=== PATIENT | male | born 1955 | race Asian ===

== ENCOUNTER 2019-04-08 22:06 | Emergency (ER) | payer OTHER ==
[~2019-04-08] VITALS: Ht 167.6 cm; Wt 75.6 kg
[~2019-04-08 22:06] MED LIST: ASPI81TA45 PO; ATOR40TA78 PO; CLOP75TA PO; LISI40TA PO; METO25TA35 PO/NG; OXYC5TAB3 PO
--- NOTE | 2019-04-08 22:48 | NUR ---
PT TO TRIAGE WITH C/O ABD PAIN IN NAD AT THIS TIME
--- NOTE | 2019-04-08 23:07 | NUR ---
CELESTINO PIV, LABS AND UA SENT
[2019-04-08 23:11] LABS: MICROSCOPIC NOT IND
[2019-04-08 23:18] LABS: BASOPHILS # (AUTO) 0.04 x10^3/uL (0-0.1); BASOPHILS % (AUTO) 1 % (0-1); EOSINOPHILS # (AUTO) 0.51 x10^3/uL (0-0.4); EOSINOPHILS % (AUTO) 7 % (1-7); LYMPHOCYTES # (AUTO) 1.73 x10^3/uL (1-3.4); LYMPHOCYTES % (AUTO) 23 % (22-44); MD NO; MEAN CORPUSCULAR HEMOGLOBIN 31.2 pg (27.5-34.5); MEAN CORPUSCULAR HGB CONC 33.2 g/dL (33.2-36.2); MEAN CORPUSCULAR VOLUME 94.1 fL (81-97); MEAN PLATELET VOLUME 8.1 fL (7.4-10.4); MONOCYTES # (AUTO) 0.66 x10^3/uL (0.2-0.8); MONOCYTES % (AUTO) 9 % (2-9); NEUTROPHILS # (AUTO) 4.71 x10^3/uL (1.8-6.8); NEUTROPHILS % (AUTO) 62 % (42-75); PLATELET COUNT 205 x10^3/uL (130-400); RED BLOOD COUNT 4.38 x10^6/uL (4.38-5.82)
[2019-04-08 23:20] LABS: ALANINE AMINOTRANSFERASE 36 U/L (12-78); ALBUMIN 3.6 g/dL (3.4-5.0); ANION GAP 6 mmol/L (5-15); CALCIUM 8.4 mg/dL (8.5-10.1); CHLORIDE 108 mmol/L (98-107); CREATININE 1.14 mg/dL (0.7-1.3)
[2019-04-08 23:23] LABS: ALKALINE PHOSPHATASE 134 U/L (45-117); BILIRUBIN,TOTAL 0.2 mg/dL (0.2-1.0); TOTAL PROTEIN 7.1 g/dL (6.4-8.2)
[2019-04-08] MEDS ORDERED: OMNIPAQUE 350 MG/ML, 100ML BOTTLE ONE (23:44)
[2019-04-09 00:30] VITALS: BP 130/80
== END 2019-04-09 00:31 | disposition home or self-care (01) ==
LOC: ED 23:25
DX: R10.32 Left lower quadrant pain (principal)
CPT/HCPCS: 36415; 74177; 80053; 81003; 83690; 85025; 99284; Q9967

== ENCOUNTER 2019-06-18 08:07 | Outpatient (CLI) | payer OTHER ==
[2019-06-18] MEDS ORDERED: AMLO-150 PO (08:44)
[2019-06-18] MEDS ORDERED: LISI-167 PO (08:44)
[2019-06-18] MEDS ORDERED: METO25TA35 PO (08:44)
[2019-06-28] MEDS ORDERED: OXYC-302 PO (09:09)
== END 2019-06-18 23:59 | disposition home or self-care (01) ==
LOC: STAR 08:07
PROVIDERS: ATTEND Surgery
DX: Z01.818 Encounter for other preprocedural examination (principal)
CPT/HCPCS: 93005

== ENCOUNTER 2019-06-26 06:55 | Inpatient (IN) | payer OTHER ==
[~2019-06-26] VITALS: Ht 167.6 cm; Wt 73.0 kg
[2019-06-29 12:13] VITALS: BP 109/68
== END 2019-06-29 14:05 | disposition home or self-care (01) | DRG 330 ==
LOC: ORIP 06:55 → 4WST 14:40 → DCLOUNGE 06-29 13:51
PROVIDERS: ADMIT Surgery; ATTEND Surgery
PROC: 0DTF4ZZ Resection of Right Large Intestine, Percutaneous Endoscopic Approach (ICD-10-PCS; principal; 2019-06-26)
PROC: 0DBU4ZZ Excision of Omentum, Percutaneous Endoscopic Approach (ICD-10-PCS; 2019-06-26)
PROC: 3E0T3BZ Introduction of Anesthetic Agent into Peripheral Nerves and Plexi, Percutaneous Approach (ICD-10-PCS; 2019-06-26)
DX: C18.4 Malignant neoplasm of transverse colon (principal); D62 Acute posthemorrhagic anemia; K92.2 Gastrointestinal hemorrhage, unspecified; E78.00 Pure hypercholesterolemia, unspecified; I10 Essential (primary) hypertension; I25.10 Atherosclerotic heart disease of native coronary artery without angina pectoris
CPT/HCPCS: 36415; J3490; 80048; 85025; 86850; 86900; 88309; G0378; J2175; J2250; J2405; J2704; J2795; J3010; J8501; J1720; J2370; J3480; J7120

== ENCOUNTER → 2020-02-19 | Outpatient (CLI) | payer OTHER ==
[~2020-02-19] MED LIST changes: +AMLO-150 PO; +LISI-167 PO; +METO25TA35 PO; +OMNIPAQUE 350 MG/ML, 100ML BOTTLE ONE; +OXYC-302 PO
== END | disposition home or self-care (01) ==
LOC: CFH 12:37
PROVIDERS: ATTEND Internal Medicine
DX: C18.3 Malignant neoplasm of hepatic flexure (principal); K76.0 Fatty (change of) liver, not elsewhere classified; K80.20 Calculus of gallbladder without cholecystitis without obstruction; N28.1 Cyst of kidney, acquired; R91.8 Other nonspecific abnormal finding of lung field; J47.9 Bronchiectasis, uncomplicated; N40.0 Benign prostatic hyperplasia without lower urinary tract symptoms; T17.890A Other foreign object in other parts of respiratory tract causing asphyxiation, initial encounter; X58.XXXA Exposure to other specified factors, initial encounter; Y93.89 Activity, other specified; Y92.89 Other specified places as the place of occurrence of the external cause; Y99.8 Other external cause status; Z95.1 Presence of aortocoronary bypass graft; Z90.49 Acquired absence of other specified parts of digestive tract
CPT/HCPCS: 71260; 74177; Q9967

== ENCOUNTER 2020-04-15 11:19 | Day surgery (SDC) | payer OTHER ==
[~2020-04-15] VITALS: Ht 167.6 cm; Wt 73.2 kg
[~2020-04-15 11:19] MED LIST changes: -OMNIPAQUE 350 MG/ML, 100ML BOTTLE ONE
[2020-04-15 11:51] VITALS: BP 112/70
[2020-04-15] MEDS ORDERED: SODIUM CHLORIDE 0.9% 1,000 ML IV SCH (12:00)
[2020-04-15] MEDS ORDERED: CEFAZOLIN PMX 1GM/50ML 50 ML IV ONE (12:00)
[2020-04-15] MEDS ORDERED: LIDOCAINE 1%, 10ML ONE (12:42)
[2020-04-15] MEDS ORDERED: LIDOCAINE 1%, 20ML ONE (12:43)
[2020-04-15] MEDS ORDERED: FENTANYL PF 100 MCG/2ML ONE (13:26)
[2020-04-15] MEDS ORDERED: FLUMAZENIL 0.1 MG/1 ML, 5ML ONE (13:26)
[2020-04-15] MEDS ORDERED: NALOXONE 1 MG/ML, 2ML ONE (13:26)
[2020-04-15] MEDS ORDERED: MIDAZOLAM 1 MG/ML, 5ML ONE (13:26)
[2020-04-15] MEDS ORDERED: ONDANSETRON 2MG/ML, 2ML IVPush ONE (15:30)
== END 2020-04-15 15:40 | disposition home or self-care (01) ==
LOC: OUT 11:19
PROVIDERS: ATTEND Internal Medicine
DX: C18.3 Malignant neoplasm of hepatic flexure (principal); C78.00 Secondary malignant neoplasm of unspecified lung; I10 Essential (primary) hypertension; E78.5 Hyperlipidemia, unspecified; I25.10 Atherosclerotic heart disease of native coronary artery without angina pectoris; Z90.49 Acquired absence of other specified parts of digestive tract; Z95.1 Presence of aortocoronary bypass graft
CPT/HCPCS: 36561; 76937; 77001; 99156; 99157; C1788; J0690; J1642; J2250; J2405; J3010; J7030; J2310

== ENCOUNTER → 2020-07-08 | Outpatient (CLI) | payer OTHER ==
[~2020-07-08] MED LIST changes: +OMNIPAQUE 350 MG/ML, 100ML BOTTLE ONE
== END | disposition home or self-care (01) ==
LOC: RAD 08:04
PROVIDERS: ATTEND Internal Medicine
DX: C18.3 Malignant neoplasm of hepatic flexure (principal); R91.8 Other nonspecific abnormal finding of lung field
CPT/HCPCS: 71260; 74177; Q9967